=== PATIENT | male | born 1995 | race Caucasian/White ===

== ENCOUNTER 2023-04-28 14:54 | Emergency (ER) | payer BC ==
[~2023-04-28] VITALS: Ht 170.2 cm; Wt 74.8 kg
[2023-04-28 15:00] VITALS: BP_SYST 103; PULSE 48; RESP 19; TEMP 98; O2SAT 97
[2023-04-28] MEDS ORDERED: DICL20GE TP (18:27)
[2023-04-28] MEDS ORDERED: IBUP-1969 PO (18:27)
[2023-04-28 18:33] VITALS: BP_SYST 103; PULSE 48; RESP 19; TEMP 98; O2SAT 97
== END 2023-04-28 18:33 | disposition home or self-care (01) ==
LOC: SED 14:54
DX: S86.911A Strain of unspecified muscle(s) and tendon(s) at lower leg level, right leg, initial encounter (principal); X58.XXXA Exposure to other specified factors, initial encounter; Y93.89 Activity, other specified; Y92.89 Other specified places as the place of occurrence of the external cause; Y99.8 Other external cause status
CPT/HCPCS: 93971; 99284